=== PATIENT | male | born 1975 | race Caucasian/White ===

== ENCOUNTER → 2019-05-04 | Emergency (ER) | payer OTHER ==
[~2019-05-04] VITALS: Ht 177.8 cm; Wt 89.8 kg
== END | disposition home or self-care (01) ==
LOC: ER 21:32
DX: S61.221A Laceration with foreign body of left index finger without damage to nail, initial encounter (principal); W26.0XXA Contact with knife, initial encounter; Y93.89 Activity, other specified; Y92.090 Kitchen in other non-institutional residence as the place of occurrence of the external cause; Y99.8 Other external cause status